=== PATIENT | female | born 1975 | race Caucasian/White ===

== ENCOUNTER 2022-06-27 22:15 | Outpatient (REF) | payer OTHER, SELFPAY ==
[2022-06-27 23:51] LABS: Thyroid Stimulating Hormone* 0.663 uIU/mL (0.270-4.20)
[2022-06-29 12:56] LABS: Estradiol Premenol Female 143 pg/mL
[2022-06-29 20:14] LABS: Free T3 2.4 pg/mL (2.5-4.3); Total T3 96 ng/dL (80-200)
[2022-07-03 14:37] LABS: Progesterone, HPLC-MS/MS 7.68 ng/mL
== END 2022-06-27 22:16 | disposition home or self-care (01) ==
LOC: NPINS 22:15
PROVIDERS: PCP Family Medicine; Referring Provider Physician Assistant Medical; Visit Provider Physician Assistant Medical
DX: Z31.49 Encounter for other procreative investigation and testing (principal); N93.9 Abnormal uterine and vaginal bleeding, unspecified
CPT/HCPCS: 82670; 84144; 84443; 84480; 84481